=== PATIENT | female | born 1965 | race African-American/Black ===

== ENCOUNTER 2018-03-09 02:13 | Emergency (ER) | payer OTHER ==
[~2018-03-09] VITALS: Ht 170.2 cm; Wt 86.6 kg
[~2018-03-09 02:13] MED LIST: ADVAIR HFA 230M12 GM INH; HYDROCODONE-AP1 EAC6 PO; NAPROSYN500 MG PO; NORFLEX100 MG PO; PREDNISONE 20 M20 MG PO; VENTOLIN HFA 1818 GM INH
[2018-03-09] MEDS ORDERED: TESSALON PERLE100 MG PO (03:33)
[2018-03-09] MEDS ORDERED: VENTOLIN HFA 1818 GM INH (03:33)
[2018-03-09 03:48] VITALS: BP 110/67
== END 2018-03-09 03:49 | disposition home or self-care (01) ==
LOC: ER 02:13
DX: J45.901 Unspecified asthma with (acute) exacerbation (principal); J06.9 Acute upper respiratory infection, unspecified; F17.210 Nicotine dependence, cigarettes, uncomplicated; Z88.5 Allergy status to narcotic agent; Z88.2 Allergy status to sulfonamides